=== PATIENT | male | born 2005 | race Caucasian/White ===

== ENCOUNTER 2024-10-09 10:36 | Emergency (ER) | payer MEDICAID ==
[~2024-10-09] VITALS: Ht 182.9 cm; Wt 102.3 kg
[~2024-10-09 10:36] MED LIST: AMOX-580 PO; DOXY-1 PO
[2024-10-09 10:55] VITALS: BP 126/60; PULSE 72; RESP 18; O2SAT 100
--- NOTE | 2024-10-09 11:50 | Physician Documentation ---
History of Present Illness ~ Chief Complaint: Abscess Stated Complaint: SWOLLEN EYE Time Seen by MD: 11:30 Primary Medical Doctor: NONE HPI This is a 18-year-old male who presents with an area of swelling to the medial aspect of his right eye, patient reports that he was treated for infection of the area approximately three weeks ago with antibiotics, patient reports that the pain redness and purulent drainage went away though he is left with an area of minor swelling. Reports no fever. Tetanus Within 5 Years: No Medication Reconciliation Allergies: Coded Allergies: No Known Allergies (Unverified , 05/15/14) Scheduled Amox Tr/Potassium Clavulanate 875/125 MG (Augmentin 875/125 MG), 1 TAB PO BID Doxycycline Hyclate (Doxycycline Hyclate), 1 CAP PO Q12H Past Medical History Past Medical History: No Pertinent History Past Surgical History: no surgical history Patient History: Patient reports no known family medical history. Lives with: Family Lives In: Home Occupation: student, child Review of Systems ROS As stated above in the HPI, otherwise all systems are reviewed and negative. Physical Exam Vital Signs: Temperature: 97.8, Source: Temporal, Heart Rate: 72, Respiratory Rate: 18, BP: 126/60, Pulse Oximetry: 100, Weight: 102.270 Oxygen Flow Rate: 0 Physical Exam VITALS: Reviewed and as above. GENERAL: Alert, nontoxic appearing, no apparent distress. HEENT: PERRLA, EOMI without pain, no erythema or periorbital tenderness, right medial periorbital area minor swelling without fluctuance or induration. RESPIRATORY: No increased work of breathing, no respiratory distress, speaking in full clear sentences Progress Results/Orders Results/Orders Vital Signs 10/09/24 10/09/24 10:55 12:14 Temp 97.8 97.8 Pulse 72 Resp 18 B/P (MAP) 126/60 Pulse Ox 100 O2 Flow Rate 0 Medical Decision Making Findings This 18-year-old male presented with an area of residual swelling to his medial periorbital area after being treated for an infection the area, area does not appear to be infected as it is nonerythematous, nontender, not urine indurated, and not fluctuant. Believe there may be a dermoid cyst in the area or other cystic lesion, this will require ophthalmology follow up due to proximity to orbit and lacrimal. Patient is otherwise well-appearing with remainder of physical exam benign, patient is appropriate for outpatient follow up. Patient provided follow up instructions return to care precautions which he verbalized understanding of. Differential Dx:Considerations: Include: Abscess, Cellulitis, Other (Periorbital cellulitis, orbital cellulitis, chalazion, hordeolum) Departure Disposition: HOME / SELF CARE / HOMELESS Impression: Primary Impression: Periorbital dermoid cyst Condition: Stable Additional Instructions: This appears to be a subdermal cyst that will require an risk investigator to remove as it is too close to the eye and other important structures for us to remove the cyst in the emergency department. Please follow up with your primary care provider in the next few days for risk investigator referral. Please return to the emergency department for any new or worsening concerning symptoms. Referrals: NO PRIMARY CARE PROVIDER (PCP) Education Educated: Patient Educated regarding: diagnosis, treatment, prognosis, need for follow up Signature Scribe Signature: No scribe Attestation: The note accurately reflects work and decisions made by me.BHAVNA Moreau 10/10/24 21:50 MARTITA REDMOND Oct 09, 2024 11:50
[2024-10-09 12:14] VITALS: TEMP 97.8
== END 2024-10-09 12:17 | disposition home or self-care (01) ==
LOC: ER 10:37
DX: D36.7 Benign neoplasm of other specified sites (principal)
CPT/HCPCS: 99281; 99282